=== PATIENT | female | born 1965 | race Caucasian/White ===

== ENCOUNTER 2021-02-05 09:43 | Emergency (ER) | payer OTHER, SELFPAY ==
--- NOTE | ~2021-02-05 | XR_ITS ---
EXAMINATION: XR chest 2V DATE: 02/05/2021 10:10 INDICATION: Cough TECHNIQUE: PA and lateral views of the chest are obtained. COMPARISON: None available FINDINGS: The lungs are free of acute opacities. There is no pleural effusion or pneumothorax. The ca rdiomediastinal silhouette is normal. There is moderate thoracic spondylosis. Bulging contour of the right hilar region likely reflects the ascending aorta. IMPRESSION: 1. No acute cardiopulmonary abnormality. Reviewed, dictated and finalized at location A.
[2021-02-05 09:50] VITALS: BP 143/85; PULSE 107; RESP 16; TEMP 37.6; O2SAT 99
--- NOTE | 2021-02-05 09:57 | ED.URI ---
HPI - URI/Sore Throat General Chief Complaint: Upper Respiratory Infection Stated Complaint: poss bronchitis Time Seen by Provider: 02/05/21 10:01 Source: patient History of Present Illness HPI Narrative: PATIENT PRESENTS WITH A COUGH. PATIENT THINKS SHE HAS BRONCHITIS. NO SHORTNESS OF BREATH AND NO CHEST PAIN. MD elicited complaint: cough Pertinent past history: COPD Onset (ago): day(s) (3 DAYS) Severity: mild Able to tolerate fluids by mouth: Yes Exacerbating factors: nothing Relieving factors: nothing Related Data Allergies Allergy/AdvReac Type Severity Reaction Status Date / Time No Known Allergies Allergy Verified 02/05/21 10:04 Review of Systems Review of Systems: CONSTITUTIONAL: Denies fever, chills, or sweats. EYES: Denies visual changes, redness, or discharge. ENT: Denies rhinorrhea, congestion, sore throat, or otalgia. CARDIOVASCULAR: Denies chest pain, palpitations, or edema. RESPIRATORY: Denies cough or dyspnea. GASTROINTESTINAL: Denies abdominal pain, nausea, vomiting, or diarrhea. GENITOURINARY: Denies dysuria or hematuria. SKIN: Denies rash or itching. MUSCULOSKELETAL: Denies back pain, joint pain, or myalgia. NEUROLOGIC: Denies headache, numbness, or weakness. PSYCHIATRIC: Denies anxiety or depression. PMFSH Comments At time of signature, agree with nursing past medical, surgical, social and family history. There is no relevant family history pertinent to the presenting complaint Exam Narrative: GENERAL: Well-appearing, well-nourished, and in no acute distress. HEAD: Normocephalic, atraumatic. EYES: PERRLA and EOMI. ENT: Nares clear, no rhinorrhea or epistaxis. Mucous membranes moist. NECK: Supple. CHEST: Clear to auscultation. No respiratory distress. HEART: Regular rate and rhythm. No murmur heard. Normal peripheral pulses. ABDOMEN: Soft, nontender, nondistended, normal active bowel sounds. EXTREMITIES: Normal range of motion. No edema. SKIN: Warm, dry, no rash. NEURO: No focal deficits. Alert and oriented x3. [place] Coma Scale Eye Opening: Spontaneous 4 [place] Coma Scale Motor: Obeys Commands 6 [place] Coma Scale Verbal: Oriented 5 [place] Coma Scale Total 15 Course Vital Signs Vital signs: Vital Signs Temperature 37.6 C H 02/05/21 09:50 Pulse Rate 107 H 02/05/21 09:50 Respiratory Rate 16 02/05/21 09:50 Blood Pressure 143/85 H 02/05/21 09:50 Pulse Oximetry 99 02/05/21 09:50 Temperature 37.6 C H 02/05/21 09:50 Pulse Rate 107 H 02/05/21 09:50 Respiratory Rate 16 02/05/21 09:50 Blood Pressure 143/85 H 02/05/21 09:50 Pulse Oximetry 99 02/05/21 09:50 Please RIVERA schedule a followup visit with your personal physician for further evaluation and treatment. Including recheck and discussion of your blood pressure. If your symptoms persist, change or worsen significantly before you can contact your personal physician then please, without delay, go to the emergency department for further evaluation DISCUSSED WITH PATIENT, X-RAY FINDINGS AND THAT X-RAYS WERE NEGATIVE FOR FRACTURE OR DISLOCATIONS. X-RAYS CANNOT RULE OUT TENDON, LIGAMENT, OR SOFT TISSUE STRUCTURE INJURIES AND IF SYMPTOMS PERSIST OR WORSEN, FURTHER EVALUATION MAY BE WARRANTED FOR POTENTIAL IMAGING. ADVISED REST, ICE, COMPRESSION, AND ELEVATION. IF PRESCRIBED ANY MEDICATIONS, TAKE DIRECTED. IF PRESCRIBED MUSCLE RELAXERS, DO NOT DRINK ALCOHOL, DRIVE, OR OPERATE ANY HEAVY MACHINERY WHILE TAKING. INSTRUCTED ON WHEN TO F/U WITH PCP AND CRITICAL RED FLAGS S/S DISCUSSED TO WHEN TO RETURN TO THE [facility] OR GO TO THE EMERGENCY DEPARTMENT. PATIENT/FAMILY UNDERSTAND IMPORTANCE OF CLOSE OBSERVATION AND RETURNING OR GOING TO THE EMERGENCY ROOM IF ANY WORSENING CONDITION. . Wheezes resolved after nebulizer treatment. Patient states she feels much better and is ready to go home MDM - URI/Sore Throat Differential Diagnosis Differential diagnosis: Likely upper respiratory infection, croup, otitis media, viral inf
[2021-02-05] MEDS: ALBUTEROL SULFATE NEB 2.5 MG/3 ML INH INHALATION (10:28)
[2021-02-05] MEDS: IPRATROPIUM BR 0.02% INH SOLN 0.5 MG/2.5 ML VIAL INHALATION (10:29)
== END 2021-02-05 10:40 | disposition home or self-care (01) ==
PROVIDERS: Emergency Provider Nurse Practitioner Family; PCP Physician Assistant
DX: J40 Bronchitis, not specified as acute or chronic (principal); I10 Essential (primary) hypertension; J44.9 Chronic obstructive pulmonary disease, unspecified
CPT/HCPCS: 71046; 94640; 99213; G0463